=== PATIENT | male | born 1985 | race Caucasian/White ===

== ENCOUNTER 2016-06-13 14:42 | Emergency (ER) | payer SELFPAY ==
[~2016-06-13] VITALS: Ht 172.7 cm; Wt 93.0 kg
[2016-06-13 14:48] VITALS: BP 132/68
--- NOTE | 2016-06-13 16:34 | NUR ---
Patient ambulated to bed 05.
--- NOTE | 2016-06-13 16:38 | NUR ---
Dr. Stout evaluating patient at bedside.
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
[2016-06-13] MEDS ORDERED: LIDOCAINE 1% ED 50 ML ONE (16:41)
[2016-06-13] MEDS ORDERED: LIDOCAINE 1% 500 MG/50 ML VIAL INJ ONE (16:50)
[2016-06-13] MEDS ORDERED: BACITRACIN OINT 500 UNITS/GM PKT TP ONE (16:56)
[2016-06-13 17:15] VITALS: BP 122/76
== END 2016-06-13 17:15 | disposition home or self-care (01) ==
LOC: MED 14:42
DX: S60.351A Superficial foreign body of right thumb, initial encounter (principal); W45.8XXA Other foreign body or object entering through skin, initial encounter; Y93.89 Activity, other specified; Y92.89 Other specified places as the place of occurrence of the external cause; Y99.8 Other external cause status
CPT/HCPCS: 10120; 90471; 90715; 99284; J2001